=== PATIENT | male | born 1990 | race Caucasian/White ===

== ENCOUNTER 2020-12-20 21:20 | Emergency (ER) | payer SELFPAY ==
[2020-12-20 22:00] LABS: #Basophils 0.1 thou/uL (0.0-0.2); #Eosinphils 0.2 thou/uL (0.0-0.7); #Lymphocytes 3.2 thou/uL (1.20-3.40); #Monocytes 0.8 thou/uL (0.11-0.59); #Neutrophils 3.6 thou/uL (1.40-6.50); %Basophils 1.7 % (0.0-1.0); %Eosinophils 2.3 % (0.0-10.0); %Lymphocytes 40.8 % (21.0-51.0); %Neutrophils 45.2 % (42.0-75.0); Hemoglobin 15.4 g/dL (14.0-18.0); Mean Corpuscular HGB CONC 32.2 g/dL (32.0-36.0); Mean Platelet Volume 7.3 fL (7.4-10.4); Platelet Count 338 thou/uL (130-400); RBC Distribution Width 10.9 % (11.5-14.5); White Blood Cell (WBC) Count 7.9 thou/uL (4.8-10.8)
[2020-12-20 22:19] LABS: ALT (SGPT) 33 U/L (8-55); AST (SGOT) 25 U/L (5-34); Albumin 4.1 g/dL (3.5-5.0); Alkaline Phosphatase 49 U/L (40-110); Anion Gap 12 mmol/L (10-20); BUN (Urea Nitrogen) 19 mg/dL (8.9-20.6); Bilirubin, Total 0.7 mg/dL (0.2-1.2); CK (CPK) 89 U/L (30-200); Calc. Creatinine Clearance 0 mL/min (70-130); Calcium 9.5 mg/dL (7.8-10.44); Carbon Dioxide 26 mmol/L (22-29); Chloride 104 mmol/L (98-107); Globulin 3.2 g/dL (2.4-3.5); Glucose 97 mg/dL (70-105); Potassium 4.2 mmol/L (3.5-5.1); Protein, Total 7.3 g/dL (6.0-8.3); Sodium 138 mmol/L (136-145)
[2020-12-20] MEDS ORDERED: Ketorolac Tromethamine 30 MG/ML VIAL ONE (22:31)
== END 2020-12-20 23:01 | disposition home or self-care (01) ==
LOC: MADERS 21:20
DX: T43.621A Poisoning by amphetamines, accidental (unintentional), initial encounter (principal); F41.9 Anxiety disorder, unspecified; R29.700 NIHSS score 0; I10 Essential (primary) hypertension; K21.9 Gastro-esophageal reflux disease without esophagitis; F17.220 Nicotine dependence, chewing tobacco, uncomplicated; Z79.899 Other long term (current) drug therapy
CPT/HCPCS: 70450; 71045; 80053; 82550; 84484; 85025; 93005; 96374; J1885

== ENCOUNTER 2021-01-20 20:37 | Emergency (ER) | payer SELFPAY ==
[2021-01-20] MEDS ORDERED: diphenhydrAMINE 50 MG/ML VIAL ONE (21:09)
[2021-01-20 21:14] LABS: Bilirubin Negative (Negative); Blood, Urine Negative (Negative); Clarity Clear (Clear); Glucose, Urine (Dipstick) Negative (Negative); Ketone, Urine Negative (Negative); Leukocyte Negative (Negative); Nitrite Negative (Negative); Protein, Urine (Dipstick) Negative (Neg-Trace); Urobilinogen 0.2 mg/dL (Less than 2); pH, Urine 8.5 (5.0-9.0)
[2021-01-20 21:23] LABS: #Basophils 0.1 thou/uL (0.0-0.2); #Lymphocytes 3.4 thou/uL (1.20-3.40); #Monocytes 0.8 thou/uL (0.11-0.59); #Neutrophils 5.4 thou/uL (1.40-6.50); %Basophils 0.9 % (0.0-1.0); %Eosinophils 0.4 % (0.0-10.0); %Lymphocytes 35.5 % (21.0-51.0); %Monocytes 7.9 % (0.0-10.0); %Neutrophils 55.3 % (42.0-75.0); Hemoglobin 15.1 g/dL (14.0-18.0); Mean Corpuscular Hemoglobin 28.4 pg (27.0-31.0); Mean Corpuscular Volume 86.1 fL (78.0-98.0); Mean Platelet Volume 6.9 fL (7.4-10.4); Platelet Count 307 thou/uL (130-400); RBC Distribution Width 10.9 % (11.5-14.5); Red Blood Cell (RBC) Count 5.33 mill/uL (4.70-6.10); White Blood Cell (WBC) Count 9.7 thou/uL (4.8-10.8)
[2021-01-20 21:24] LABS: Amphetamine Not Detected (NotDetected); Barbiturates Screen Not Detected (NotDetected); Benzodiazepine Screen Not Detected (NotDetected); Cocaine Metabolite Screen Not Detected (NotDetected); Medtox Control Line Valid? VALID (VALID); Methadone Not Detected (NotDetected); Methamphetamine Detected (NotDetected); Opiate Screen Not Detected (NotDetected); Oxycodone Screen Not Detected (NotDetected); Phencyclidine (PCP) Not Detected (NotDetected); THC/Cannabinoid Screen Detected (NotDetected); Tricyclic Screen Not Detected (NotDetected)
[2021-01-20 21:43] LABS: ALT (SGPT) 26 U/L (8-55); AST (SGOT) 18 U/L (5-34); Albumin 3.8 g/dL (3.5-5.0); Alkaline Phosphatase 46 U/L (40-110); Anion Gap 12 mmol/L (10-20); BUN (Urea Nitrogen) 16 mg/dL (8.9-20.6); Bilirubin, Total 0.4 mg/dL (0.2-1.2); CK (CPK) 51 U/L (30-200); Calc. Creatinine Clearance 0 mL/min (70-130); Calcium 8.7 mg/dL (7.8-10.44); Carbon Dioxide 26 mmol/L (22-29); Chloride 106 mmol/L (98-107); Globulin 2.9 g/dL (2.4-3.5); Glucose 98 mg/dL (70-105); Lipase 29 U/L (8-78); Protein, Total 6.7 g/dL (6.0-8.3); Sodium 140 mmol/L (136-145)
== END 2021-01-20 22:03 | disposition home or self-care (01) ==
LOC: MADERS 20:37
DX: R11.2 Nausea with vomiting, unspecified (principal); F12.10 Cannabis abuse, uncomplicated; F15.10 Other stimulant abuse, uncomplicated; I10 Essential (primary) hypertension; F17.220 Nicotine dependence, chewing tobacco, uncomplicated; Z79.899 Other long term (current) drug therapy
CPT/HCPCS: 71045; 80053; 80306; 81003; 82150; 82550; 83690; 85025; 96361; 96374; J1200

== ENCOUNTER 2021-03-11 11:27 | Emergency (ER) | payer SELFPAY ==
[2021-03-11] MEDS ORDERED: Sodium Chloride 0.9% 1,000 ML ONE (12:05)
[2021-03-11 12:14] LABS: #Basophils 0.2 thou/uL (0.0-0.2); #Eosinphils 0.2 thou/uL (0.0-0.7); #Lymphocytes 3.6 thou/uL (1.20-3.40); #Monocytes 0.9 thou/uL (0.11-0.59); %Basophils 1.7 % (0.0-1.0); %Eosinophils 2.1 % (0.0-10.0); %Monocytes 10.2 % (0.0-10.0); Hemoglobin 15.8 g/dL (14.0-18.0); Mean Corpuscular Hemoglobin 27.7 pg (27.0-31.0); Mean Corpuscular Volume 86.7 fL (78.0-98.0); Mean Platelet Volume 7.1 fL (7.4-10.4); Platelet Count 307 thou/uL (130-400); RBC Distribution Width 11.5 % (11.5-14.5); Red Blood Cell (RBC) Count 5.71 mill/uL (4.70-6.10); White Blood Cell (WBC) Count 8.8 thou/uL (4.8-10.8)
[2021-03-11 12:27] LABS: ALT (SGPT) 27 U/L (8-55); AST (SGOT) 19 U/L (5-34); Albumin 3.9 g/dL (3.5-5.0); Alkaline Phosphatase 48 U/L (40-110); Anion Gap 15 mmol/L (10-20); BUN (Urea Nitrogen) 18 mg/dL (8.9-20.6); Bilirubin, Total 0.8 mg/dL (0.2-1.2); CK (CPK) 68 U/L (30-200); Calc. Creatinine Clearance 0 mL/min (70-130); Calcium 9.2 mg/dL (7.8-10.44); Carbon Dioxide 24 mmol/L (22-29); Chloride 107 mmol/L (98-107); Glucose 104 mg/dL (70-105); Potassium 3.6 mmol/L (3.5-5.1); Protein, Total 6.9 g/dL (6.0-8.3); Sodium 142 mmol/L (136-145)
[2021-03-11 12:28] LABS: CKMB 0.5 ng/mL (0-6.6)
== END 2021-03-11 13:00 | disposition home or self-care (01) ==
LOC: MADERS 11:27
DX: F43.0 Acute stress reaction (principal); F41.9 Anxiety disorder, unspecified; F15.10 Other stimulant abuse, uncomplicated; R07.89 Other chest pain; I10 Essential (primary) hypertension; F17.220 Nicotine dependence, chewing tobacco, uncomplicated; Z79.899 Other long term (current) drug therapy; Z86.018 Personal history of other benign neoplasm
CPT/HCPCS: 36415; 71045; 80053; 82550; 82553; 84484; 85025; 93005; J7050

== ENCOUNTER 2021-04-05 12:43 | Emergency (ER) | payer OTHER, SELFPAY ==
[2021-04-05 13:15] LABS: #Basophils 0.1 thou/uL (0.0-0.2); #Eosinphils 0.2 thou/uL (0.0-0.7); #Lymphocytes 2.6 thou/uL (1.20-3.40); #Monocytes 0.6 thou/uL (0.11-0.59); #Neutrophils 3.3 thou/uL (1.40-6.50); %Basophils 1.4 % (0.0-1.0); %Eosinophils 2.5 % (0.0-10.0); %Lymphocytes 38.5 % (21.0-51.0); %Monocytes 8.5 % (0.0-10.0); %Neutrophils 49.1 % (42.0-75.0); Hemoglobin 15.2 g/dL (14.0-18.0); Mean Corpuscular HGB CONC 32.1 g/dL (32.0-36.0); Mean Corpuscular Hemoglobin 27.4 pg (27.0-31.0); Mean Corpuscular Volume 85.5 fL (78.0-98.0); Mean Platelet Volume 6.7 fL (7.4-10.4); Platelet Count 297 thou/uL (130-400); RBC Distribution Width 11.1 % (11.5-14.5); Red Blood Cell (RBC) Count 5.53 mill/uL (4.70-6.10); White Blood Cell (WBC) Count 6.6 thou/uL (4.8-10.8)
[2021-04-05 13:33] LABS: ALT (SGPT) 44 U/L (8-55); AST (SGOT) 23 U/L (5-34); Alkaline Phosphatase 52 U/L (40-110); Anion Gap 11 mmol/L (10-20); Calc. Creatinine Clearance 0 mL/min (70-130); Calcium 9.9 mg/dL (7.8-10.44); Carbon Dioxide 26 mmol/L (22-29); Chloride 106 mmol/L (98-107); Globulin 3.2 g/dL (2.4-3.5); Glucose 91 mg/dL (70-105); Magnesium 1.8 mg/dL (1.6-2.6); Potassium 4.4 mmol/L (3.5-5.1); Protein, Total 7.2 g/dL (6.0-8.3); Sodium 139 mmol/L (136-145)
[2021-04-05 13:44] LABS: BUN (Urea Nitrogen) 16 mg/dL (8.9-20.6)
[2021-04-05] MEDS ORDERED: Ketorolac Tromethamine 30 MG/ML VIAL ONE (13:52)
[2021-04-05] MEDS ORDERED: Lorazepam 1 MG TAB ONE (13:52)
== END 2021-04-05 14:00 | disposition home or self-care (01) ==
LOC: MADERS 12:43
DX: G40.909 Epilepsy, unspecified, not intractable, without status epilepticus (principal); I10 Essential (primary) hypertension; H54.7 Unspecified visual loss; F17.220 Nicotine dependence, chewing tobacco, uncomplicated; Z79.899 Other long term (current) drug therapy; W01.10XA Fall on same level from slipping, tripping and stumbling with subsequent striking against unspecified object, initial encounter; Y92.69 Other specified industrial and construction area as the place of occurrence of the external cause
CPT/HCPCS: 36415; 70450; 72125; 80053; 83735; 85025; 96374; J1885

== ENCOUNTER 2021-04-08 16:56 | Emergency (ER) | payer SELFPAY ==
[2021-04-08] MEDS ORDERED: predniSONE 20 MG TAB ONE (17:57)
[2021-04-09 23:01] LABS: SARS-CoV-2 PCR by NAA Not Detected (NotDetected)
== END 2021-04-08 19:00 | disposition home or self-care (01) ==
LOC: MADERS 16:56
DX: J02.9 Acute pharyngitis, unspecified (principal); J34.89 Other specified disorders of nose and nasal sinuses; R05 Cough; R09.81 Nasal congestion; R51.9 Headache, unspecified; I10 Essential (primary) hypertension; Z20.822 Contact with and (suspected) exposure to COVID-19; R06.02 Shortness of breath; R53.81 Other malaise; R53.1 Weakness; F17.220 Nicotine dependence, chewing tobacco, uncomplicated; Z79.899 Other long term (current) drug therapy
CPT/HCPCS: 71045; 87804; J7512; J7620; U0003; U0005

== ENCOUNTER 2021-05-18 09:41 | Emergency (ER) | payer SELFPAY ==
[2021-05-18] MEDS ORDERED: Ketorolac Tromethamine 30 MG/ML VIAL ONE (10:01)
== END 2021-05-18 10:25 | disposition home or self-care (01) ==
LOC: MADERS 09:41
DX: G40.409 Other generalized epilepsy and epileptic syndromes, not intractable, without status epilepticus (principal); I10 Essential (primary) hypertension; F17.220 Nicotine dependence, chewing tobacco, uncomplicated; Z79.899 Other long term (current) drug therapy
CPT/HCPCS: 96374; J1885

== ENCOUNTER 2021-05-22 16:13 | Emergency (ER) | payer SELFPAY ==
[2021-05-23 11:55] LABS: SARS-CoV-2 PCR by NAA Not Detected (NotDetected)
== END 2021-05-22 17:15 | disposition home or self-care (01) ==
LOC: MADERS 16:13
DX: J06.9 Acute upper respiratory infection, unspecified (principal); Z20.822 Contact with and (suspected) exposure to COVID-19; I10 Essential (primary) hypertension; F17.220 Nicotine dependence, chewing tobacco, uncomplicated; Z86.018 Personal history of other benign neoplasm
CPT/HCPCS: 99283; U0003; U0005

== ENCOUNTER 2021-09-13 21:07 | Emergency (ER) | payer SELFPAY ==
[2021-09-13 21:52] LABS: #Basophils 0.1 thou/uL (0.0-0.2); #Eosinphils 0.3 thou/uL (0.0-0.7); #Monocytes 0.6 thou/uL (0.11-0.59); #Neutrophils 2.9 thou/uL (1.40-6.50); %Basophils 1.8 % (0.0-1.0); %Eosinophils 4.1 % (0.0-10.0); %Lymphocytes 43.2 % (21.0-51.0); %Neutrophils 41.8 % (42.0-75.0); Hemoglobin 16.2 g/dL (14.0-18.0); Mean Corpuscular HGB CONC 33.6 g/dL (32.0-36.0); Mean Corpuscular Hemoglobin 27.4 pg (27.0-31.0); Mean Corpuscular Volume 81.6 fL (78.0-98.0); Mean Platelet Volume 6.3 fL (7.4-10.4); Platelet Count 321 thou/uL (130-400); RBC Distribution Width 10.8 % (11.5-14.5); Red Blood Cell (RBC) Count 5.91 mill/uL (4.70-6.10); White Blood Cell (WBC) Count 6.8 thou/uL (4.8-10.8)
[2021-09-13] MEDS ORDERED: Ondansetron PF 4 MG/2 ML Vial ONE (21:52)
[2021-09-13] MEDS ORDERED: Sodium Chloride 0.9% 1,000 ML ONE (21:52)
[2021-09-13] MEDS ORDERED: Pantoprazole 40 MG VIAL ONE (21:52)
[2021-09-13 21:56] LABS: Bilirubin Negative (Negative); Blood, Urine Negative (Negative); Clarity Slightly Cloudy (Clear); Glucose, Urine (Dipstick) Negative (Negative); Ketone, Urine Negative (Negative); Leukocyte Negative (Negative); Nitrite Negative (Negative); Protein, Urine (Dipstick) Negative (Neg-Trace); Urobilinogen 0.2 mg/dL (Less than 2); pH, Urine 7.5 (5.0-9.0)
[2021-09-13 22:13] LABS: ALT (SGPT) 30 U/L (8-55); AST (SGOT) 25 U/L (5-34); Albumin 4.5 g/dL (3.5-5.0); Alkaline Phosphatase 65 U/L (40-110); Anion Gap 14 mmol/L (10-20); BUN (Urea Nitrogen) 15 mg/dL (8.9-20.6); Bilirubin, Total 0.6 mg/dL (0.2-1.2); Calc. Creatinine Clearance 0 mL/min (70-130); Calcium 9.5 mg/dL (7.8-10.44); Carbon Dioxide 25 mmol/L (22-29); Chloride 105 mmol/L (98-107); Globulin 3.6 g/dL (2.4-3.5); Glucose 97 mg/dL (70-105); Lipase 40 U/L (8-78); Potassium 4.1 mmol/L (3.5-5.1); Protein, Total 8.1 g/dL (6.0-8.3); Sodium 140 mmol/L (136-145)
[2021-09-13 22:14] LABS: CK (CPK) 115 U/L (30-200); CRP (Inflammatory) Less than 0.50 mg/dL (= or < 0.5)
[2021-09-13] MEDS ORDERED: Magnesium Citrate 300 ML BOT ONE (22:37)
== END 2021-09-13 22:44 | disposition home or self-care (01) ==
LOC: MADERS 21:07
DX: K59.00 Constipation, unspecified (principal); F17.220 Nicotine dependence, chewing tobacco, uncomplicated; I10 Essential (primary) hypertension; Z79.899 Other long term (current) drug therapy
CPT/HCPCS: 74177; 80053; 81003; 82150; 82550; 83690; 85025; 86140; 87086; 94760; 96374; 96375; C9113; J2405; J7050

== ENCOUNTER 2021-12-25 06:46 | Emergency (ER) | payer SELFPAY ==
[2021-12-25] MEDS ORDERED: Fluorescein Opthalmic Strip ONE (07:03)
[2021-12-25] MEDS ORDERED: Tetracaine 0.5% PF 4 ML BOT ONE (07:03)
[2021-12-25] MEDS ORDERED: Ibuprofen 800 MG TAB ONE (08:10)
== END 2021-12-25 08:47 | disposition home or self-care (01) ==
LOC: MADERS 06:46
DX: H53.8 Other visual disturbances (principal); H57.11 Ocular pain, right eye; I10 Essential (primary) hypertension; F17.220 Nicotine dependence, chewing tobacco, uncomplicated
CPT/HCPCS: 99283

== ENCOUNTER 2022-05-05 18:50 | Emergency (ER) | payer SELFPAY ==
[2022-05-05] MEDS ORDERED: predniSONE 20 MG TAB ONE (19:21)
[2022-05-05 20:02] LABS: SARS-CoV-2 NAA Rapid Test Not Detected (NotDetected)
== END 2022-05-05 19:25 | disposition home or self-care (01) ==
LOC: MADERS 18:50
DX: J06.9 Acute upper respiratory infection, unspecified (principal); J20.8 Acute bronchitis due to other specified organisms; J01.00 Acute maxillary sinusitis, unspecified; F17.220 Nicotine dependence, chewing tobacco, uncomplicated; Z20.822 Contact with and (suspected) exposure to COVID-19; Z79.01 Long term (current) use of anticoagulants; Z79.899 Other long term (current) drug therapy
CPT/HCPCS: 99283; J7512

== ENCOUNTER 2022-08-05 00:07 | Emergency (ER) | payer SELFPAY ==
[2022-08-05] MEDS ORDERED: Ondansetron ODT 4 MG TAB ONE (00:30)
[2022-08-05] MEDS ORDERED: Dexamethasone 10 MG/ML VIAL ONE (00:30)
== END 2022-08-05 01:20 | disposition home or self-care (01) ==
LOC: MADERS 00:07
DX: J11.1 Influenza due to unidentified influenza virus with other respiratory manifestations (principal); I10 Essential (primary) hypertension; F17.220 Nicotine dependence, chewing tobacco, uncomplicated; Z20.822 Contact with and (suspected) exposure to COVID-19
CPT/HCPCS: 87081; 87430; 87804; 96372; 99283; J1100; Q0162; U0003; U0005

== ENCOUNTER 2022-08-24 12:01 | Emergency (ER) | payer SELFPAY ==
[2022-08-24] MEDS ORDERED: Fluorescein Opthalmic Strip ONE (12:43)
[2022-08-24] MEDS ORDERED: Tetracaine 0.5% PF 4 ML BOT ONE (12:43)
[2022-08-24] MEDS ORDERED: Boostrix 0.5 ML (Tdap) VIAL (>/=7 yrs of age) ONE (13:15)
== END 2022-08-24 13:42 | disposition home or self-care (01) ==
LOC: MADERS 12:01
DX: S05.01XA Injury of conjunctiva and corneal abrasion without foreign body, right eye, initial encounter (principal); I10 Essential (primary) hypertension; G40.409 Other generalized epilepsy and epileptic syndromes, not intractable, without status epilepticus; F17.220 Nicotine dependence, chewing tobacco, uncomplicated; X58.XXXA Exposure to other specified factors, initial encounter; Z23 Encounter for immunization; Z79.899 Other long term (current) drug therapy
CPT/HCPCS: 90471; 90715

== ENCOUNTER 2022-11-08 19:40 | Emergency (ER) | payer SELFPAY ==
[2022-11-08] MEDS ORDERED: Dexamethasone 4 MG TAB ONE (20:18)
== END 2022-11-08 20:46 | disposition home or self-care (01) ==
LOC: MADERS 19:40
DX: B34.9 Viral infection, unspecified (principal); I10 Essential (primary) hypertension; F17.220 Nicotine dependence, chewing tobacco, uncomplicated; Z79.899 Other long term (current) drug therapy
CPT/HCPCS: 87081; 87430; 87804; 99283; J8540

== ENCOUNTER 2023-07-20 10:02 | Emergency (ER) | payer SELFPAY, OTHER ==
[2023-07-20] MEDS ORDERED: Ketorolac Tromethamine 30 MG/ML VIAL ONE (11:10)
[2023-07-20] MEDS ORDERED: Acetaminophen 500 MG TAB ONE (11:10)
[2023-07-20] MEDS ORDERED: Lisinopril 10 MG TAB ONE (11:10)
== END 2023-07-20 12:22 | disposition home or self-care (01) ==
LOC: MADERS 10:02
DX: S13.4XXA Sprain of ligaments of cervical spine, initial encounter (principal); R56.9 Unspecified convulsions; M48.02 Spinal stenosis, cervical region; I10 Essential (primary) hypertension; F17.220 Nicotine dependence, chewing tobacco, uncomplicated; W22.8XXA Striking against or struck by other objects, initial encounter
CPT/HCPCS: 70450; 72125; 96372; J1885

== ENCOUNTER 2024-07-28 19:43 | Emergency (ER) | payer SELFPAY ==
[2024-07-28] MEDS ORDERED: Acetaminophen 500 MG TAB ONE (20:02)
[2024-07-28] MEDS ORDERED: Lisinopril 10 MG TAB ONE (20:41)
== END 2024-07-28 21:25 | disposition home or self-care (01) ==
LOC: MADERS 19:43
DX: I10 Essential (primary) hypertension (principal); R56.9 Unspecified convulsions; F17.220 Nicotine dependence, chewing tobacco, uncomplicated
CPT/HCPCS: 87400; 99284

== ENCOUNTER 2025-03-22 10:21 | Emergency (ER) | payer SELFPAY ==
[2025-03-22] MEDS ORDERED: Acetaminophen 500 MG TAB ONE (10:56)
[2025-03-22] MEDS ORDERED: Mag-Al 1200 mg/1200 mg/30 ML UDCUP ONE (10:56)
[2025-03-22] MEDS ORDERED: Lidocaine Viscous Sol 2% 15 ml UD Cup ONE (10:56)
[2025-03-22 11:28] LABS: Anisocytosis SLIGHT = 6-15 cells (100X) (0-5/hpf); Hematocrit 49.4 % (42.0-52.0); Hemoglobin 16.0 g/dL (14.0-18.0); MDiff Complete? YES; Mean Corpuscular Hemoglobin 27.0 pg (27.0-31.0); Mean Corpuscular Volume 83.4 fl (78.0-98.0); Platelet Adequacy Comment Appears Adequate; Platelet Count 324 10x3/uL (130-400); Red Blood Cell (RBC) Count 5.93 mill/uL (4.70-6.10); White Blood Cell (WBC) Count 6.9 10x3/uL (4.8-10.8)
[2025-03-22 11:36] LABS: ALT (SGPT) 52 U/L (Less than 45); AST (SGOT) 36 U/L (11-34); Albumin 4.1 g/dL (3.1-4.5); Alkaline Phosphatase 69 U/L (40-110); Anion Gap 15 mmol/L (10-20); BUN (Urea Nitrogen) 12 mg/dL (8.9-20.6); Bilirubin, Total 1.1 mg/dL (0.3-1.2); Calc. Creatinine Clearance 0 mL/min (70-130); Calcium 9.2 mg/dL (7.8-10.44); Carbon Dioxide 24 mmol/L (22-29); Chloride 103 mmol/L (98-107); Globulin 4.0 g/dL (2.4-3.5); Glucose 101 mg/dL (70-105); Lipase 42 U/L (8-78); Potassium 4.7 mmol/L (3.5-5.1); Sodium 137 mmol/L (136-145)
[2025-03-22 11:37] LABS: Troponin I 0.012 ng/mL (< 0.028)
== END 2025-03-22 12:25 | disposition home or self-care (01) ==
LOC: MADERS 10:21
DX: M25.572 Pain in left ankle and joints of left foot (principal); M25.571 Pain in right ankle and joints of right foot; M25.532 Pain in left wrist; M25.531 Pain in right wrist; R05.9 Cough, unspecified; K21.9 Gastro-esophageal reflux disease without esophagitis
CPT/HCPCS: 71045; 80053; 83690; 84484; 85025; 93005; J7030